=== PATIENT | male | born 1980 | race Caucasian/White ===

== ENCOUNTER 2021-08-21 11:11 | Emergency (ER) | payer MEDICAID | END 2021-08-21 12:20 | disposition home or self-care (01) | LOC: LB.ED 11:11 | DX: S92.811A Other fracture of right foot, initial encounter for closed fracture (principal) | CPT/HCPCS: 73630-LT; 99283 ==

== ENCOUNTER 2023-01-29 10:07 | Emergency (ER) | payer MEDICAID ==
[2023-01-29] MEDS ORDERED: HYDROmorphone 2 MG/ML Syringe ONE (10:48)
[2023-01-29] MEDS: HYDROmorphone 2 MG/ML Syringe IVPUSH ONE ×2 (10:50→11:00)
[2023-01-29 10:54] LABS: BASOPHILS ABSOLUTE AUTO 0.02 K/uL (0.02-0.10); BASOPHILS PERCENT AUTO 0.3 % (0.0-0.5); EOSINOPHILS ABSOLUTE AUTO 0.25 K/uL (0.04-0.40); HEMATOCRIT 45.1 % (40.0-54.0); HEMOGLOBIN 16.1 g/dL (13.0-18.0); LYMPHOCYTES ABSOLUTE AUTO 1.66 K/uL (1.50-4.00); LYMPHOCYTES PERCENT AUTO 26.9 % (20.0-40.0); MEAN CORPUSCULAR HEMOGLOBIN 29.8 pg (27.0-32.0); MEAN CORPUSCULAR HGB CONC 35.7 g/dL (31.0-35.0); MEAN CORPUSCULAR VOLUME 83 fL (76-96); MEAN PLATELET VOLUME 9.1 fL (6.0-10.0); MONOCYTES ABSOLUTE AUTO 0.55 K/uL (0.20-0.80); MONOCYTES PERCENT AUTO 8.9 % (3.0-10.0); NEUTROPHILS PERCENT AUTO 59.9 % (45.0-70.0); PLATELET COUNT,PLT 254 K/uL (150-400); RED BLOOD CELL COUNT 5.41 M/uL (4.50-6.50); RED CELL DISTRIBUTION WIDTH 13.8 % (11.0-16.0); WHITE BLOOD CELL COUNT,WBC 6.2 K/uL (4.0-11.0)
[2023-01-29] MEDS: Sodium Chloride 0.9% 1,000 ML IV ONE (11:00)
[2023-01-29 11:18] LABS: A/G RATIO 1.2 (0.8-2.0); ALANINE AMINOTRANSFERASE,ALT 22 U/L (12-78); ALBUMIN 4.2 g/dL (3.4-5.0); ANION GAP 9.2 mmol/L (5.0-15.0); ASPARTATE AMNIOTRANSFERASE,AST 11 U/L (15-37); BILIRUBIN TOTAL 0.3 mg/dL (0.0-1.0); BLOOD UREA NITROGEN,BUN 15 mg/dL (8-26); BUN/CREATININE RATIO 15.2 (6-25); CALCIUM 9.1 mg/dL (8.5-10.1); CARBON DIOXIDE,CO2 30.7 mmol/L (21.0-32.0); CHLORIDE,CL 103 mmol/L (98-107); CREATININE 0.99 mg/dL (0.70-1.30); ESTIMATED GFR 96 mL/min (>60); GLUCOSE RANDOM 93 mg/dL (74-100); POTASSIUM,K 3.9 mmol/L (3.5-5.1); PROTEIN TOTAL,TP 7.8 g/dL (6.4-8.2); SODIUM,NA 139 mmol/L (136-145)
[2023-01-29] MEDS: Ketorolac 30 MG/ML SDV IVPUSH ONE (11:45)
[2023-01-29] MEDS ORDERED: Ketorolac 30 MG/ML SDV ONE (11:46)
[2023-01-29 11:58] LABS: APPEARANCE,URINE CLEAR (CLEAR); BILIRUBIN,URINE NEGATIVE (NEGATIVE); COLOR,URINE YELLOW; GLUCOSE,URINE NEGATIVE (NEGATIVE); KETONES,URINE NEGATIVE (NEGATIVE); LEUKOCYTE ESTERASE,URINE NEGATIVE (NEGATIVE); NITRITE,URINE NEGATIVE (NEGATIVE); OCCULT BLOOD,URINE NEGATIVE (NEGATIVE); PH,URINE 6.5 (5.0-8.0); PROTEIN,URINE NEGATIVE (NEGATIVE); UROBILINOGEN,URINE 0.2 E.U./dL (0.2-1.0)
[2023-01-29 12:02] LABS: RBC,URINE 0-5 /HPF; WBC,URINE NOT SEEN /HPF
[2023-01-29] MEDS ORDERED: Acetaminophen/oxyCODONE 325-5 MG Tab ONE (12:30)
== END 2023-01-29 12:44 | disposition home or self-care (01) ==
LOC: LB.ED 10:07
DX: M54.50 Low back pain, unspecified (principal); R10.32 Left lower quadrant pain
CPT/HCPCS: 36415; 74176; 80053; 81001; 83605; 83690; 85025; 96361; 96374; 96375; 99284-25; A9270-GY; J1170; J1885; J7030

== ENCOUNTER 2023-05-20 22:59 | Emergency (ER) | payer MEDICAID ==
[2023-05-21] MEDS: Ketorolac 30 MG/ML SDV IM SCH (00:05)
[2023-05-21] MEDS: Diphtheria,Pertussis(Acell),Tetanus Vaccine 0.5 ML Syringe IM ONE (00:09)
== END 2023-05-21 00:15 | disposition home or self-care (01) ==
LOC: LB.ED 22:59
DX: S51.012A Laceration without foreign body of left elbow, initial encounter (principal); Z23 Encounter for immunization; Z87.891 Personal history of nicotine dependence; Z79.899 Other long term (current) drug therapy; W01.198A Fall on same level from slipping, tripping and stumbling with subsequent striking against other object, initial encounter
CPT/HCPCS: 12001; 90471; 90715; 96372; 99283-25; J1885

== ENCOUNTER 2023-08-30 13:39 | Emergency (ER) | payer MEDICAID ==
[2023-08-30] MEDS: oxyCODONE 5 MG Tab PO ONE (14:50)
[2023-08-30] MEDS: Diazepam 10 MG Tab PO ONE (14:51)
[2023-08-30] MEDS ORDERED: Naloxone 2 MG/2 ML Syringe IVPUSH PRN (15:58)
[2023-08-30] MEDS: fentaNYL 100 MCG/2 ML SDV IVPUSH ONE (16:16)
[2023-08-30] MEDS: fentaNYL 100 MCG/2 ML SDV ONE (16:41)
[2023-08-30] MEDS ORDERED: Sodium Chloride 0.9% 10 ML Syringe FLUSH PRN (17:30)
== END 2023-08-30 17:00 | disposition home or self-care (01) ==
LOC: LB.ED 13:39
DX: M54.50 Low back pain, unspecified (principal)
CPT/HCPCS: 96374; 99283; A9270; J3010; 99284

== ENCOUNTER 2023-10-08 15:31 | Emergency (ER) | payer MEDICAID ==
[2023-10-08] MEDS: Ketorolac 30 MG/ML SDV IM ONE (16:12)
[2023-10-08] MEDS: diazePAM 5 MG/ML MDV IM ONE (16:15)
[2023-10-08] MEDS: Ketorolac 60 MG/2 ML SDV IM ONE (16:18)
[2023-10-08] MEDS: methylPREDNISolone Sodium Succinate 125 MG/2 ML SDV IM ONE (16:26)
[2023-10-08] MEDS: HYDROmorphone 2 MG/ML Syringe SUBCUT SCH (17:00)
[2023-10-08] MEDS ORDERED: predniSONE 10 MG Tab ONE (18:00)
[2023-10-08] MEDS: fentaNYL 25 MCG/HR Transdermal Patch TRDERM SCH (18:20)
[2023-10-08] MEDS: fentaNYL 25 MCG/HR Transdermal Patch ONE (18:39)
[2023-10-08] MEDS: HYDROmorphone 2 MG/ML Syringe SUBCUT ONE (18:42)
== END 2023-10-08 18:25 | disposition home or self-care (01) ==
LOC: LB.ED 15:31
DX: M54.50 Low back pain, unspecified (principal); Z87.891 Personal history of nicotine dependence; Z79.899 Other long term (current) drug therapy
CPT/HCPCS: 96372; 99283; A9270-GY; J1170; J1885; J2930; J3360; J7512

== ENCOUNTER 2023-10-17 21:02 | Emergency (ER) | payer MEDICAID ==
[2023-10-17] MEDS ORDERED: Naloxone 2 MG/2 ML Syringe IVPUSH PRN (21:46)
[2023-10-17] MEDS: HYDROmorphone 2 MG/ML Syringe IM PRN (21:50)
[2023-10-17] MEDS: HYDROmorphone 2 MG/ML Syringe ONE (21:54)
[2023-10-17] MEDS: Ketorolac 60 MG/2 ML SDV IM ONE ×2 (21:55→21:56)
[2023-10-17] MEDS: Ketorolac 60 MG/2 ML SDV ONE (21:57)
[2023-10-17] MEDS: Orphenadrine 60 MG/2 ML Inj IM ONE (22:45)
[2023-10-17] MEDS: Orphenadrine 60 MG/2 ML Inj ONE (22:49)
[2023-10-17] MEDS ORDERED: Ketorolac 10 MG Tab ONE (23:00)
[2023-10-17] MEDS ORDERED: Cyclobenzaprine 10 MG Tab ONE (23:00)
[2023-10-17] MEDS: Cyclobenzaprine 10 MG Tab ONE ×2 (23:26→23:27)
[2023-10-19] MEDS: Ketorolac 10 MG Tab ONE (08:16)
== END 2023-10-17 23:20 | disposition home or self-care (01) ==
LOC: LB.ED 21:02
DX: M54.50 Low back pain, unspecified (principal); Z79.899 Other long term (current) drug therapy
CPT/HCPCS: 96372; 99283; A9270-GY; J1170; J1885; J2360

== ENCOUNTER 2023-10-23 20:29 | Emergency (ER) | payer MEDICAID ==
[2023-10-23] MEDS: Ketorolac 60 MG/2 ML SDV IM ONE (20:30)
== END 2023-10-23 21:00 | disposition home or self-care (01) ==
LOC: LB.ED 20:29
DX: M54.50 Low back pain, unspecified (principal); Z79.899 Other long term (current) drug therapy; Z86.19 Personal history of other infectious and parasitic diseases
CPT/HCPCS: 96372; 99283; 99284; J1885

== ENCOUNTER 2023-10-27 18:45 | Emergency (ER) | payer MEDICAID ==
[2023-10-27] MEDS: Lidocaine 1% with EPINEPHrine 1:100,000 20 ML MDV INJECT ONE (19:25)
[2023-10-27] MEDS: Bacitracin Oint 1 GM U/D Packet TOP ONE (19:45)
[2023-10-27] MEDS: Lidocaine 1% with EPINEPHrine 1:100,000 50 ML MDV INFILT ONE (21:01)
== END 2023-10-27 19:50 | disposition home or self-care (01) ==
LOC: LB.ED 18:45
DX: S61.215A Laceration without foreign body of left ring finger without damage to nail, initial encounter (principal); Z79.899 Other long term (current) drug therapy; Z87.891 Personal history of nicotine dependence; W26.0XXA Contact with knife, initial encounter; Y92.511 Restaurant or cafe as the place of occurrence of the external cause; Y93.G1 Activity, food preparation and clean up; Y99.0 Civilian activity done for income or pay
CPT/HCPCS: 12001; 99282

== ENCOUNTER 2023-10-29 15:17 | Emergency (ER) | payer MEDICAID ==
[2023-10-29] MEDS ORDERED: Ketorolac 60 MG/2 ML SDV ONE (16:08)
[2023-10-29] MEDS ORDERED: Orphenadrine 60 MG/2 ML Inj ONE (16:08)
[2023-10-29] MEDS: Ketorolac 60 MG/2 ML SDV IM ONE (16:13)
[2023-10-29] MEDS: Orphenadrine 60 MG/2 ML Inj IM ONE (16:13)
[2023-10-29] MEDS ORDERED: Heparin Sodium 1,000 Units/ML 10 ML MDV ONE (16:16)
[2023-10-29] MEDS ORDERED: Heparin Sodium/D5W 500 ML ONE (16:16)
== END 2023-10-29 16:15 | disposition home or self-care (01) ==
LOC: LB.ED 15:17
DX: M54.50 Low back pain, unspecified (principal); Z79.899 Other long term (current) drug therapy; Z86.19 Personal history of other infectious and parasitic diseases
CPT/HCPCS: 96372; 99283; J1885; J2360

== ENCOUNTER 2023-11-02 13:33 | Emergency (ER) | payer MEDICAID ==
[2023-11-02] MEDS: HYDROmorphone 2 MG/ML Syringe SUBCUT PRN (14:44)
[2023-11-02] MEDS: methylPREDNISolone Sodium Succinate 125 MG/2 ML SDV IM ONE (14:46)
[2023-11-02] MEDS: fentaNYL 100 MCG/2 ML SDV IM SCH (15:46)
[2023-11-02] MEDS: fentaNYL 100 MCG/2 ML SDV ONE (15:50)
[2023-11-02] MEDS: Orphenadrine 60 MG/2 ML Inj IM ONE (17:04)
[2023-11-02] MEDS: Orphenadrine 60 MG/2 ML Inj ONE (17:07)
[2023-11-02] MEDS ORDERED: Cyclobenzaprine 10 MG Tab ONE (17:30)
== END 2023-11-02 17:50 | disposition home or self-care (01) ==
LOC: LB.ED 13:33
DX: M54.50 Low back pain, unspecified (principal); G89.29 Other chronic pain; Z79.899 Other long term (current) drug therapy; Z86.19 Personal history of other infectious and parasitic diseases
CPT/HCPCS: 96372; 99283; A9270; J1170; J2360; J2930; J3010; 72158; 99284

== ENCOUNTER 2023-11-09 14:48 | Emergency (ER) | payer MEDICAID ==
[2023-11-09] MEDS: Orphenadrine 60 MG/2 ML Inj IM ONE (15:18)
[2023-11-09] MEDS: Ketorolac 60 MG/2 ML SDV IM ONE (15:19)
[2023-11-09] MEDS: Acetaminophen/oxyCODONE 325-10 MG Tab PO PRN (15:25)
== END 2023-11-09 15:37 | disposition home or self-care (01) ==
LOC: LB.ED 14:48
DX: M54.50 Low back pain, unspecified (principal); Z79.899 Other long term (current) drug therapy
CPT/HCPCS: 96372; 99283; A9270-GY; J1885; J2360

== ENCOUNTER 2024-01-25 22:33 | Emergency (ER) | payer MEDICAID ==
[2024-01-25] MEDS: Ketorolac 30 MG/ML SDV IM ONE (23:09)
[2024-01-25] MEDS ORDERED: Cephalexin 500 MG Cap ONE (23:15)
== END 2024-01-25 23:23 | disposition home or self-care (01) ==
LOC: LB.ED 22:33
DX: T81.49XA Infection following a procedure, other surgical site, initial encounter (principal)
CPT/HCPCS: 87075; 96372; 99283; A9270; J1885

== ENCOUNTER 2024-02-04 11:51 | Emergency (ER) | payer MEDICAID ==
[2024-02-04] MEDS: Cyclobenzaprine 10 MG Tab PO ONE (12:34)
[2024-02-04] MEDS: Ketorolac 30 MG/ML SDV IM ONE (12:35)
[2024-02-04] MEDS: Ketorolac 30 MG/ML SDV ONE (13:47)
[2024-02-04] MEDS: HYDROmorphone 2 MG/ML Syringe IM ONE (13:48)
[2024-02-04 14:25] LABS: APPEARANCE,URINE CLEAR (CLEAR); BILIRUBIN,URINE NEGATIVE (NEGATIVE); COLOR,URINE YELLOW; GLUCOSE,URINE NEGATIVE (NEGATIVE); KETONES,URINE TRACE mg/dL (NEGATIVE); LEUKOCYTE ESTERASE,URINE NEGATIVE (NEGATIVE); NITRITE,URINE NEGATIVE (NEGATIVE); OCCULT BLOOD,URINE TRACE-INTACT (NEGATIVE); PH,URINE 6.5 (5.0-8.0); PROTEIN,URINE NEGATIVE (NEGATIVE); UROBILINOGEN,URINE 0.2 E.U./dL (0.2-1.0)
[2024-02-04] MEDS: HYDROmorphone 2 MG/ML Syringe ONE (14:25)
[2024-02-04 14:28] LABS: RBC,URINE 0-5 /HPF; WBC,URINE NOT SEEN /HPF
[2024-02-04 15:34] VITALS: BP 148/79; PULSE 77
== END 2024-02-04 16:00 | disposition home or self-care (01) ==
LOC: LB.ED 11:51
DX: G89.29 Other chronic pain (principal); M54.50 Low back pain, unspecified; Z79.899 Other long term (current) drug therapy; Z87.891 Personal history of nicotine dependence
CPT/HCPCS: 72100; 74176; 81001; 96372; 99284; A9270-GY; J1170; J1885

== ENCOUNTER 2024-05-15 15:21 | Emergency (ER) | payer SELFPAY ==
[2024-05-15] MEDS: Cyclobenzaprine 10 MG Tab PO ONE (15:52)
[2024-05-15] MEDS: Acetaminophen 500 MG Tab PO ONE (15:52)
[2024-05-15] MEDS: Ketorolac 30 MG/ML SDV IM ONE (15:52)
[2024-05-15 16:52] LABS: APPEARANCE,URINE CLEAR (CLEAR); COLOR,URINE YELLOW; PH,URINE 6.5 (5.0-8.0)
[2024-05-15 16:53] LABS: BILIRUBIN,URINE NEGATIVE (NEGATIVE); GLUCOSE,URINE NEGATIVE (NEGATIVE); KETONES,URINE NEGATIVE (NEGATIVE); LEUKOCYTE ESTERASE,URINE NEGATIVE (NEGATIVE); NITRITE,URINE NEGATIVE (NEGATIVE); OCCULT BLOOD,URINE NEGATIVE (NEGATIVE); PROTEIN,URINE NEGATIVE (NEGATIVE); UROBILINOGEN,URINE 0.2 E.U./dL (0.2-1.0)
[2024-05-15 17:21] LABS: BASOPHILS ABSOLUTE AUTO 0.03 K/uL (0.02-0.10); BASOPHILS PERCENT AUTO 0.4 % (0.0-0.5); EOSINOPHILS PERCENT AUTO 4.2 % (1.0-5.0); HEMOGLOBIN 14.7 g/dL (13.0-18.0); LYMPHOCYTES ABSOLUTE AUTO 2.45 K/uL (1.50-4.00); MEAN CORPUSCULAR HEMOGLOBIN 30.6 pg (27.0-32.0); MEAN CORPUSCULAR HGB CONC 35.9 g/dL (31.0-35.0); MEAN CORPUSCULAR VOLUME 85 fL (76-96); MEAN PLATELET VOLUME 8.9 fL (6.0-10.0); MONOCYTES ABSOLUTE AUTO 0.59 K/uL (0.20-0.80); MONOCYTES PERCENT AUTO 8.2 % (3.0-10.0); NEUTROPHILS ABSOLUTE AUTO 3.83 K/uL (2.00-7.50); NEUTROPHILS PERCENT AUTO 53.2 % (45.0-70.0); PLATELET COUNT,PLT 328 K/uL (150-400); RED CELL DISTRIBUTION WIDTH 12.7 % (11.0-16.0); WHITE BLOOD CELL COUNT,WBC 7.2 K/uL (4.0-11.0)
[2024-05-15] MEDS ORDERED: GI Cocktail Oral Solution 30 ML PO ONE (17:28)
[2024-05-15 17:56] LABS: A/G RATIO 1.5 (0.8-2.0); ALBUMIN 4.3 g/dL (3.4-5.0); ANION GAP 14.3 mmol/L (5.0-15.0); BILIRUBIN TOTAL 0.5 mg/dL (0.0-1.0); BUN/CREATININE RATIO 14.3 (6-25); CALCIUM 9.1 mg/dL (8.5-10.1); CARBON DIOXIDE,CO2 29.8 mmol/L (21.0-32.0); CREATININE 0.91 mg/dL (0.70-1.30); EST CRCL DRUG DOSING (CG) 104.73 mL/min; POTASSIUM,K 4.1 mmol/L (3.5-5.1); PROTEIN TOTAL,TP 7.2 g/dL (6.4-8.2)
== END 2024-05-15 18:04 | disposition home or self-care (01) ==
LOC: LB.ED 15:21
DX: M54.50 Low back pain, unspecified (principal); G89.29 Other chronic pain; Z79.899 Other long term (current) drug therapy
CPT/HCPCS: 36415; 80053; 81003; 83605; 83690; 85025; 86140; 96372; 99283; 99284; A9270-GY; J1885